=== PATIENT | male | born 1995 | race Caucasian/White ===

== ENCOUNTER 2020-12-19 00:12 | Emergency (ER) | payer OTHER ==
[2020-12-19] MEDS ORDERED: AUGMENTIN 875-1 EACH PO (03:23)
[2020-12-19] MEDS ORDERED: IBUPROFEN800 MG PO (03:23)
== END 2020-12-19 04:00 | disposition home or self-care (01) ==
LOC: ER1 00:12
DX: S61.250A Open bite of right index finger without damage to nail, initial encounter (principal); W54.0XXA Bitten by dog, initial encounter; Y92.009 Unspecified place in unspecified non-institutional (private) residence as the place of occurrence of the external cause; Z23 Encounter for immunization
CPT/HCPCS: 90375; 90376; 90471; 90675; 90714; 96372; 99282